=== PATIENT | female | born 1950 | race Caucasian/White ===

== ENCOUNTER → 2021-07-03 09:33 | Outpatient (CLI) | payer MEDICARE, OTHER, SELFPAY ==
[2021-07-03 10:28] LABS: Blood Urea Nitrogen 13 mg/dL (7-17); Estimated Glomerular Filt Rate > 60.0 mL/min (>60)
--- NOTE | 2021-07-03 10:38 | DI.CT.S_ITS ---
PROCEDURE: CT ABDOMEN WO/W CON INDICATIONS: liver mass TECHNIQUE: 4 phase scanning was performed. Non-contrast 5 mm axial sections acquired from the diaphragm to the iliac crests. Following the administration of intravenous contrast, 5 mm thick arterial-phase, portal venous-phase, and 5-minute delayed phase images were acquired through the liver. 5 mm thick coronal and sagittal reformats were performed. For radiation dose reduction, the following was used: automated exposure control, adjustment of mA and/or kV according to patient size. COMPARISON: [facility], , MRI ABDOMEN W/W/O CONTRAST, 06/14/2021, 16:30. [facility], , CT ABDOMEN/PELVIS WITH CONTRAST, 06/13/2021, 15:14. FINDINGS: Image quality: Excellent. Lung bases: Mild atelectasis at the lingula. No pleural effusion. Left atrium is enlarged. Liver: Ill-defined hypodense lesion in the left lobe of the liver the segment 3 measuring 3 x 2.4 cm, (5/24), appears unchanged in the short-term interval. There is no definite enhancement. The lesion may be multifocal. There is a subcentimeter hypodensity in segment 6, (5/30), unchanged. Other solid organs: Gallbladder is surgically absent. Biliary system is non dilated. Multiple pancreatic cystic lesions appear similar in the short-term interval. No enhancing mural nodule seen. For example: -Uncinate process cyst measuring 2.1 x 1.8 cm, (5/38). -Neck/body cyst measuring 2.4 x 1.7 cm, (5/22). -Tail cyst measuring 3.5 x 3.2 cm, (5/23). Launch of the pancreatic parenchyma is replaced by the cysts. Pancreatic enhancement appears uniform. No peripancreatic fluid collection. No pancreatic calcifications. Spleen is normal in size and enhancement. No adrenal nodules. Both kidneys demonstrate normal size and enhancement, without hydronephrosis. Suspect punctate nonobstructing right kidney stone. Small bilateral peripelvic cysts. Nodes and vessels: No retroperitoneal or mesenteric adenopathy by size criteria. Aorta and inferior vena cava are normal in size. Mild plaque. Small varices in the upper left abdomen. The portal vein is patent. Bowel and peritoneum: Unenhanced bowel loops are normal in caliber. No free fluid or air. Bones: No suspicious bony lesions. No vertebral body compression fractures. Miscellaneous: No ventral hernias. IMPRESSION: 1. Multiple pancreatic cystic lesions. Larger cyst in the tail measures up to 3.5 cm. No enhancing mural nodule. These could represent IPMN, mucinous cystic neoplasm, or serous cystadenomas. Further tissue characterization with EUS and FNA is recommended. 2. Ill-defined cystic lesion in the left lobe of the liver measuring 3 cm. No internal enhancement appreciated. This could represent metastatic disease and remains indeterminate. 3. Small left upper abdomen varices. 4. Punctate nonobstructing right kidney stone. Dictated by: Robson Oro M.D. on 07/03/2021 at 12:31 Approved by: Robson Oro M.D. on 07/03/2021 at 12:57
== END ==
PROVIDERS: Referring Provider Student in an Organized Health Care Education/Training Program; Visit Provider Student in an Organized Health Care Education/Training Program
DX: R93.5 Abnormal findings on diagnostic imaging of other abdominal regions, including retroperitoneum (principal); K76.89 Other specified diseases of liver; I86.8 Varicose veins of other specified sites; R10.9 Unspecified abdominal pain; K86.2 Cyst of pancreas; N20.0 Calculus of kidney
CPT/HCPCS: 36415; 74170; 82565; 84520; Q9967

== ENCOUNTER → 2022-08-10 12:38 | Outpatient (CLI) | payer MEDICARE, OTHER, SELFPAY ==
--- NOTE | 2022-08-10 13:09 | DI.ECHO.S_ITS ---
Interpretation Summary The ejection fraction is estimated to be 25-30%. Diastolic function could not be accurately assessed due to atrial fibrillation. Right ventricular systolic function is at the lower limits of normal. The left atrium is severely dilated. The right atrium is moderate to severely dilated. There is mild mitral regurgitation. Pulmonary artery pressures cannot be estimated because of the lack of a measurable TR jet velocity. Compared to the prior study dated 06/29/2022, there is a slight improvement in the ejection fraction. Procedure: A two-dimensional transthoracic echocardiogram with color flow and Doppler was performed. The study quality was technically adequate. Comparison is made with the echocardiogram of 06/29/2022. The heart rate ranged between 78-96 bpm during the study. Left Ventricle: The left ventricle is borderline dilated. The estimated left ventricular end diastolic volume is 105 ml. Left ventricular wall thickness is borderline increased. The ejection fraction is estimated to be 25-30%. Septal motion is consistent with conduction abnormality. Diastolic function could not be accurately assessed due to atrial fibrillation. Right Ventricle: The right ventricle is normal size. Right ventricular systolic function is at the lower limits of normal. Atria: The left atrium is severely dilated. The right atrium is moderate to severely dilated. There is no Doppler evidence for an interatrial shunt. Mitral Valve: The mitral valve leaflets appear mildly thickened, but open well. There is mild mitral annular calcification. The mitral valve mean gradient is 3.7 mmHg. There is mild mitral regurgitation. Aortic Valve: The aortic valve is trileaflet. The aortic valve is mildly calcified. There is moderate aortic valve sclerosis. The peak aortic velocity is 2.1 m/sec. The aortic valve mean gradient is 11 mmHg. There is trace aortic regurgitation. Tricuspid Valve: The tricuspid valve is not well visualized, but is grossly normal. There is trace tricuspid regurgitation. Pulmonary artery pressures cannot be estimated because of the lack of a measurable TR jet velocity. Pulmonic Valve: The pulmonic valve leaflets are thin and pliable; valve motion is normal. There is no pulmonic valvular regurgitation. Great Vessels: The aortic root is normal size. The dimensions of the ascending aorta are normal. The IVC is of normal diameter and collapses greater than 50% with a sniff. This suggests a low right atrial pressure of 3 mm Hg. Pericardium/ Pleura There is no pericardial effusion. There is no pleural effusion. MMode/2D Measurements & Calculations LVIDd: 5.2 cm LVOT diam: 2.1 cm LVIDs: 4.7 cm Ao root diam: 3.2 cm FS: 8.5 % asc Aorta Diam: 3.4 cm IVSd: 1.0 cm Ao Arch Diam (Prox Trans): 2.6 cm LVPWd: 1.00 cm LV bernal. diameter/BSA (cm/m^2): 2.7 LV sys. diameter/BSA (cm/m^2): 2.5 LA A2 area: 37.2 cm2 RA long axis: 5.6 cm LA A4 area: 31.9 cm2 RA area: 23.6 cm2 LA length (vol): 6.9 cm RA vol: 84.1 ml LA vol: 145.3 ml RA : 44.1 ml/m2 LA vol index: 76.3 ml/m2 IVC diam: 1.9 cm RVD1 (basal): 3.5 cm RVD2 (mid): 3.2 cm TAPSE: 1.6 cm Doppler Measurements & Calculations Ao V2 max: 210.6 cm/sec LVOT Max Tito: 92.5 cm/sec Ao V2 mean: 155.3 cm/sec LV V1 max P.4 mmHg Ao max P.7 mmHg LV V1 VTI: 15.4 cm Ao mean P.6 mmHg KALINA(I,D): 1.2 cm2 Ao V2 VTI: 42.6 cm KALINA(V,D): 1.4 cm2 sev ratio: 0.36 KALINA indexed to BSA (cm^2/m^2): 0.62 MV E max tito: 122.9 cm/sec PA V2 max: 105.4 cm/sec MV A max tito: 1.8 cm/sec PA V2 mean: 61.4 cm/sec MV E/A: 67.5 PA mean P.8 mmHg Med Peak E' Tito: 5.7 cm/sec PA pr(Accel): 39.6 mmHg E/E' med: 21.5 Lat Peak E' Tito: 7.5 cm/sec E/E' lat: 16.4 E/e' average: 19.0 MV dec time: 0.18 sec MVA(VTI): 1.7 cm2 MV V2 mean: 86.2 cm/sec SV(LVOT): 50.7 ml MV mean P.7 mmHg MV V2 VTI: 29.3 cm Reading Physician:03:50 PM
== END ==
PROVIDERS: PCP Nurse Practitioner; Referring Provider Internal Medicine Cardiovascular Disease; Visit Provider Internal Medicine Cardiovascular Disease
DX: I50.20 Unspecified systolic (congestive) heart failure (principal)
CPT/HCPCS: 93306

== ENCOUNTER → 2023-06-17 11:54 | Outpatient (CLI) | payer MEDICARE, OTHER, SELFPAY ==
--- NOTE | 2023-06-17 11:55 | DI.ECHO.S_ITS ---
[facility] +---------+ [facility] +---------+ : : [address] : : : : [id number] : : : : Phone: [phone]+ Echocardiogram Report + + :Name: ASHLEY DIOP Study Date: 06/17/2023 Height: 65 in : :[facility] ReadingLocation: Weight: 166 lb : : Gender: Female BSA: 1.8 m2 : :: 1950 Age: 72 yrs BP: 113/75 mmHg: :Reason For Study: SYSTOLIC HEART FAILURE : :Ordering Physician: JOSE J, : :AVIVA Lomax Performed By: Sherlyn Dey : :Referring: AVIVA BUENROSTRO : + + Interpretation Summary The ejection fraction is estimated to be 35-40%. Diastolic function could not be accurately assessed due to atrial fibrillation. The right ventricle is at the upper limits of normal in size. The right ventricular systolic function is normal. There is severe biatrial enlargement. There is mild mitral regurgitation. There is mild aortic stenosis. There is trace aortic regurgitation. There is mild tricuspid regurgitation. The right ventricular systolic pressure is estimated to be at least 36 mmHg based on an estimated right atrial pressure of 8 mm Hg. There is a small to moderate pericardial effusion noted. There are no echocardiographic indications of cardiac tamponade. Compared to the prior study dated 06/09, the ejection fraction has increased and the pericardial effusion has also increased in size. Procedure: A two-dimensional transthoracic echocardiogram with color flow and Doppler was performed. The study quality was technically adequate. Comparison is made with the echocardiogram of 08/10/2022. The patient was in atrial fibrillation with heart rates between 79-93 bpm during the exam. Left Ventricle: The left ventricle is normal in size. Left ventricular wall thickness is borderline increased. The ejection fraction is estimated to be 35-40%. Diastolic function could not be accurately assessed due to atrial fibrillation. Right Ventricle: The right ventricle is at the upper limits of normal in size. The right ventricular systolic function is normal. Atria: There is severe biatrial enlargement. There is no Doppler evidence for an interatrial shunt. Mitral Valve: There is mild mitral annular calcification. The mitral valve leaflets appear moderately thickened, but open well. There is mild mitral regurgitation. Aortic Valve: The aortic valve is trileaflet. The aortic valve is mildly calcified. There is discrete nodular thickening of the non- coronary cusp. There is mild aortic stenosis. The peak aortic velocity is 2.5 m/sec. The aortic valve mean gradient is 17 mmHg. The calculated aortic valve area is 1.2 cm2. There is trace aortic regurgitation. Tricuspid Valve: The right ventricular systolic pressure is estimated to be at least 36 mmHg based on an estimated right atrial pressure of 8 mm Hg. There is mild tricuspid regurgitation. Pulmonic Valve: The pulmonic valve leaflets are thin and pliable; valve motion is normal. There is no pulmonic valvular regurgitation. Great Vessels: The aortic root is normal size. The dimensions of the ascending aorta are normal. The IVC is dilated (diameter is greater than 2.1 cm) yet it collapses greater than 50% with a sniff. This suggests a right atrial pressure of 8 mm Hg. Pericardium/ Pleura There is a small to moderate pericardial effusion noted. There are no echocardiographic indications of cardiac tamponade. There is no pleural effusion. MMode/2D Measurements & Calculations LVIDd: 4.7 cm LVOT diam: 2.0 cm LVIDs: 3.9 cm Ao root diam: 3.0 cm FS: 16.8 % asc Aorta Diam: 3.4 cm EPSS: 0.92 cm Ao Arch Diam (Prox Trans): 2.9 cm IVSd: 1.1 cm LVPWd: 0.87 cm LV bernal. diameter/BSA (cm/m^2): 2.6 LV sys. diameter/BSA (cm/m^2): 2.1 LA A2 area: 36.4 cm2 RA long axis: 6.0 cm LA A4 area: 32.3 cm2 RA area: 28.0 cm2 LA length (vol): 6.6 cm RA vol: 111.4 ml LA vol: 151.6 ml RA : 60.9 ml/m2 LA vol index: 83.0 ml/m2 IVC diam: 2.1 cm RVD1 (basal): 4.0 cm RVD2 (mid): 2.9 cm TAPSE: 1.6 cm Doppler Measurements & Calculations Ao V2 max: 246.0 cm/sec LVOT Max Tito: 93.6 cm/sec Ao V2 mean: 173.3 cm/sec LV V1 max P.5 mmHg Ao max P.8 mmHg LV V1 VTI: 16.3 cm Ao mean P.5 mmHg KALINA(I,D): 1.1 cm2 Ao V2 VTI: 45.3 cm KALINA(V,D): 1.2 cm2 sev ratio: 0.36 KALINA indexed to BSA (cm^2/m^2): 0.62 MV E max tito: 138.4 cm/sec TR max tito: 259.8 cm/sec MV A max tito: 1.5 cm/sec TR max P.0 mmHg MV E/A: 91.9 PA V2 max: 111.2 cm/sec Med Peak E' Tito: 6.2 cm/sec PA V2 mean: 80.1 cm/sec E/E' med: 22.2 PA mean P.8 mmHg Lat Peak E' Tito: 9.2 cm/sec PA pr(Accel): 51.6 mmHg E/E' lat: 15.1 E/e' average: 18.7 MV dec time: 0.21 sec SV(LVOT): 51.2 ml Reading Physician:04:36 PM
== END ==
PROVIDERS: PCP Nurse Practitioner; Referring Provider Internal Medicine Cardiovascular Disease; Visit Provider Internal Medicine Cardiovascular Disease
DX: I08.3 Combined rheumatic disorders of mitral, aortic and tricuspid valves (principal); I50.20 Unspecified systolic (congestive) heart failure; I31.39 Other pericardial effusion (noninflammatory)
CPT/HCPCS: 93306